=== PATIENT | male | born 1950 | race Caucasian/White ===

== ENCOUNTER 2023-01-25 11:45 | Outpatient (REF) | payer OTHER, SELFPAY ==
[2023-01-25 15:15] LABS: Appearance Urine Clear; Color Urine Yellow; Glucose Urine UA Negative (Negative); Leukocyte Esterase Urine Moderate (2+) (Negative); Nitrite Urine Negative (Negative); UMIC TRIGGER UA YES; Urine Blood Trace (Negative); Urine Ketones Trace mg/dL (Negative); Urine Protein 100 (2+) mg/dL (Neg-Trace)
[2023-01-25 15:40] LABS: Alanine Aminotransferase 21 U/L (0-40); Albumin Level 4.2 g/dL (3.5-5.0); Alkaline Phosphatase 67 U/L (39-117); Aspartate Amino Transferase 19 U/L (5-37); Bilirubin Direct 0.2 mg/dL (0.0-0.5); Bilirubin Total 0.5 mg/dL (0.0-1.0); Total Protein 7.1 g/dL (6.5-8.0)
[2023-01-25 16:33] LABS: Bacteria Urine None Seen (None Seen); Hyaline Casts Urine 0-2 /LPF (0-2); RBC Urine 0-2 /HPF (0-2); Squamous Epithelial Cell Urine 0-2 /HPF (0-2); WBC Urine 0-5 /HPF (0-5)
== END 2023-01-25 11:46 | disposition home or self-care (01) ==
LOC: HO.CHCLDS 11:45
PROVIDERS: Visit Provider Student in an Organized Health Care Education/Training Program
DX: E11.9 Type 2 diabetes mellitus without complications (principal)
CPT/HCPCS: 36415; 80076; 81001; 81003

== ENCOUNTER 2023-11-22 12:08 | Outpatient (REF) | payer OTHER, SELFPAY ==
[2023-11-22 14:38] LABS: MANUAL DIFF FLAG NO
[2023-11-22 14:40] LABS: Basophils Absolute Auto 0.1 X10*3/uL (0.0-0.2); Basophils Percent Auto 0.7 % (0-2); Eosinophils Absolute Auto 0.2 X10*3/uL (0.0-0.4); Eosinophils Percent Auto 2.6 % (0-4); Hematocrit 45.6 % (42.0-52.0); Imm Gran Abs Auto 0.04 X10*3/uL (0.00-0.03); Imm Gran Pct Auto 0.6 % (0.0-0.4); Lymphocytes Percent Auto 27.9 % (20-40); Mean Corpuscular HGB Conc 35.1 g/dl (31.0-36.0); Mean Corpuscular Hemoglobin 32.1 pg (27.0-33.0); Mean Corpuscular Volume 91.4 fL (80.0-98.0); Mean Platelet Volume 11.1 fL (9.4-12.4); Monocytes Absolute Auto 0.4 X10*3/uL (0.1-1.2); Monocytes Percent Auto 5.9 % (2-11); Neutrophils Absolute Auto 4.4 x10*3/uL (2.0-8.3); Neutrophils Percent Auto 62.3 % (45-73); Platelet Count 217 X10*3/uL (160-400); Red Blood Count 4.99 X10*6/uL (4.60-5.80); Red Cell Distribution Width 12.3 % (11.0-16.0)
[2023-11-22 15:12] LABS: Alanine Aminotransferase 27 U/L (0-40); Albumin Level 4.3 g/dL (3.5-5.0); Alkaline Phosphatase 77 U/L (39-117); Anion Gap 12 (12-20); Aspartate Amino Transferase 17 U/L (5-37); Bilirubin Total 0.3 mg/dL (0.0-1.0); Blood Urea Nitrogen 19 mg/dL (9-16); Calcium 9.7 mg/dL (8.4-10.2); Carbon Dioxide 26 mmol/L (22-29); Chloride 105 mmol/L (96-108); Estimated Glomerular Filt Rate 58; Glucose Random 168 mg/dL (60-115); Potassium 4.2 mmol/L (3.3-5.1); Sodium 139 mmol/L (135-145); Total Protein 7.4 g/dL (6.5-8.0)
[2023-11-22 15:31] LABS: Vitamin D 25-OH Total 42.3 ng/mL (>30)
[2023-11-22 15:34] LABS: Creatinine Urine 173.71 mg/dL; Microalbum/Creatinine Ratio Ur 150.8 ug/mg cr (<30)
[2023-11-22 15:42] LABS: Folate 8.9 ng/mL (> or = 4.0); Vitamin B12 529 pg/mL (200-900)
[2023-11-23 04:10] LABS: ~HepC Num1 0.11 S/CO (0.00-0.79); ~Hepatitis C Antibody Nonreactive (Nonreactive)
== END 2023-11-22 12:09 | disposition home or self-care (01) ==
LOC: HO.CHCLDS 12:08
PROVIDERS: Visit Provider Internal Medicine
DX: R26.9 Unspecified abnormalities of gait and mobility (principal); E11.9 Type 2 diabetes mellitus without complications; I10 Essential (primary) hypertension
CPT/HCPCS: 36415; 80053; 82043; 82306; 82570; 82607; 82746; 85025; 86803

== ENCOUNTER 2024-03-03 10:43 | Outpatient (REF) | payer OTHER, SELFPAY ==
[2024-03-03 14:44] LABS: Alanine Aminotransferase 27 U/L (0-40); Albumin Level 4.2 g/dL (3.5-5.0); Alkaline Phosphatase 68 U/L (39-117); Anion Gap 12 (12-20); Aspartate Amino Transferase 27 U/L (5-37); Bilirubin Direct 0.2 mg/dL (0.0-0.5); Bilirubin Total 0.7 mg/dL (0.0-1.0); Blood Urea Nitrogen 25 mg/dL (9-16); Calcium 9.2 mg/dL (8.4-10.2); Carbon Dioxide 27 mmol/L (22-29); Chloride 102 mmol/L (96-108); Cholesterol 248 mg/dL (<200); Estimated Glomerular Filt Rate 49; Glucose Random 186 mg/dL (60-115); HDL Cholesterol 52 mg/dL (>40); LDL Cholesterol Calculated 160 mg/dL (<100); Sodium 137 mmol/L (135-145); Total Protein 7.3 g/dL (6.5-8.0); Triglycerides 181 mg/dL (<150)
== END 2024-03-03 10:44 | disposition home or self-care (01) ==
LOC: HO.CHCLDS 10:43
PROVIDERS: Visit Provider Student in an Organized Health Care Education/Training Program
DX: I10 Essential (primary) hypertension (principal)
CPT/HCPCS: 36415; 80048; 80061; 80076

== ENCOUNTER 2024-08-25 11:44 | Outpatient (REF) | payer OTHER, SELFPAY ==
--- OUTSIDE RECORDS SUMMARY | 2024-08-25 13:17 | XMS_ITS | Encounter Summary ---
Author Organization [employer] Address [address] [facility] [address] [place] [address] Care Team Providers Care Um Rn Name Role Phone Desirae Pal MD Primary Care Provider [phone] Reason for Visit * Reason Onset Date Comments FYI 08/05/2023 Encounter Details Date Type Department Care Team ([facility] st Contact Info) Description 08/05/2023 Telephone [facility] [address] [place], [place] [id number] Desirae Pal MD 505 [place] [address] FYI Social History Tobacco Use Types Packs/Day Years Used Date Smoking Tobacco: Never Smokeless Tobacco: Never Alcohol Use Standard Drinks/Week Comments Never 0 (1 standard drink = 0.6 oz pur e alcohol) Alcohol Answer Date Recorded Frequency of Alcohol Consumption Not on file 01/17/2023 Average Number of Drinks Not on file 023 Frequency of Binge Drinking Not on file 12/24 Score 0 01/17/2023 Housing Stability Answer Date Recorded What is your housing situation today? I have pedro morrissey [address] you li ve. Do you have problems with any of the following? None of the above 2023 Food Insecurity Answer Date Recorded Within the past 12 months, y ou worried that your food would run out before you got money to buy more: Never True 2023 Within the past 12 months,th e food you bought just didn't last and you didn't have enough money to get more: Never True Transportation Answer Date Recorded In the past 12 months, has l ack of transportation kept you from medical appts, meetings, work or from getting things needed for daily living? No 2023 Utilities Answer Date Recorded In the past 12 months, has t he electric, gas, oil or water company threatened to shut off services in your home? No 2023 Sex and Gender Information Value Date Recorded Sex Assigned at Male 01/22/2022 10:27 AM EDT Legal Sex Male 10:27 AM EDT Gender Identity Male 01/22/2022 10:27 AM EDT Sexual Orientation Straight 01/22/2022 10 :27 AM EDT documented as of this encounter Miscellaneous Notes * Telephone Encounter - Geovanna Lay - 08/05/2023 2:57 PM EDT Tc from Jessenia with [facility] calling to advise provider Continuous Glucose Operations Inspector (FreeStyle Radames 2 [place]) device and Continuous Glucose Sensor (FreeStyle Radames 2 Sensor) misc was denied. Any questions, contact jessenia at [phone] ext [phone] documented in this encounter Plan of Treatment Upcoming Encounters Date Type Department Care Team (Late st Contact Info) Description 10/21/2024 11:30 AM EDT Office Visit [facility] MED & PEDS [address] [place] [address] Desirae Pal MD 505 [place] [address] documented as of this encounter Visit Diagnoses Not on filedocumented in this encounter Care Teams Um Rn Relationship Specialty Start Date End Date Desirae Pal MD [address] [place] [address] PCP - General Family Medicine 11/20/17 documented as of this encounter
[2024-08-25 15:53] LABS: Vitamin D 25-OH Total 41.2 ng/mL (>30)
[2024-08-25 16:11] LABS: Folate 9.9 ng/mL (> or = 4.0); Vitamin B12 598 pg/mL (200-900)
== END 2024-08-25 11:45 | disposition home or self-care (01) ==
LOC: HO.CHCLDS 11:44
PROVIDERS: Visit Provider Student in an Organized Health Care Education/Training Program
DX: R26.81 Unsteadiness on feet (principal)
CPT/HCPCS: 36415; 82306; 82607; 82746

== ENCOUNTER 2025-02-01 10:35 | Outpatient (REF) | payer OTHER, SELFPAY ==
--- OUTSIDE RECORDS SUMMARY | 2025-02-01 12:28 | XMS_ITS | Encounter Summary ---
Author Organization [employer] Address [address] [facility] 7t [place] [address] Care Team Providers Care Sieve Grader Tender Name Role Phone Desirae Pal MD Primary Care Provider [phone] Sveta Murry PharmD Unavailable [phone] Chacorta Cuellar CNP Primary Care Provider [phone] Encounter Details Date Type Department Care Team (Late st Contact Info) Description 08/06/2022 Orders Only [facility] MED & PEDS [address] [place] [address] Janna Peng LPN Social History Tobacco Use Types Packs/Day Years Used Date Smoking Tobacco: Never Smokeless Tobacco: Never Alcohol Use Standard Drinks/Week Comments Never 0 (1 standard drink = 0.6 oz pur e alcohol) Sex and Gender Information Value Date Recorded Sex Assigned at Male 01/22/2022 10:27 AM EDT Legal Sex Male 10:27 AM EDT Gender Identity Male 01/22/2022 10:27 AM EDT Sexual Orientation Straight 01/22/2022 10 :27 AM EDT documented as of this encounter Plan of Treatment Upcoming Encounters Date Type Department Care Team (Late st Contact Info) Description 02/22/2025 10:30 AM EST Medication Management [facility] MED & PEDS [address] [place] [address] Sveta Murry, PharmD [address] [place] [address] documented as of this encounter Visit Diagnoses Not on filedocumented in this encounter Care Teams Sieve Grader Tender Relationship Specialty Start Date End Date Desirae Pal MD [address] [place] [address] PCP - General Family Medicine 11/20/17 01/20/25 Chacorta Cuellar CNP [address] [place] [address] PCP - General Family Medicine 01/21/25 Sveta Murry PharmD [address] [place] [address] Pharmacist Pharmacy 12/31/24 documented as of this encounter
--- OUTSIDE RECORDS SUMMARY | 2025-02-01 12:28 | XMS_ITS | Encounter Summary ---
Author Organization [employer] Address [address] 7[address] [place] [address] Care Team Providers Care Automotive Service Porter Name Role Phone Desirae Pal MD Primary Care Provider [phone] Sveta Murry PharmD Unavailable [phone] Chacorta Cuellar CNP Primary Care Provider [phone] Reason for Visit * Reason Onset Date Comments triage 05/24/2022 Encounter Details Date Type Department Care Team (Late st Contact Info) Description 05/24/2022 Telephone [facility] MEDICINE [address] [place] [address] Desirae Pal MD [address] [place], [place] [phone] triage Social History Tobacco Use Types Packs/Day Years Used Date Smoking Tobacco: Never Assessed Sex and Gender Information Value Date Recorded Sex Assigned at Male 01/22/2022 10:27 AM EDT Legal Sex Male 10:27 AM EDT Gender Identity Male 01/22/2022 10:27 AM EDT Sexual Orientation Straight 01/22/2022 10 :27 AM EDT documented as of this encounter Miscellaneous Notes * Telephone Encounter - Dana Reyes RN - 05/24/2022 3:48 PM EST Triage call [place] [place] [id number] Pt is asking questions in regard to Pt leaving isolation. Pt was tested + with home Covid test05/12 and has been in isolation since that time. Pt is doing much better no further fever but, has residual cough but, not like before. Pt tested Pt again and Pt remains positive. is asking for advice as to whether Pt can come out of his room and be among family now. Home care information given regarding repeat testing and stopping isolation. Pt had no further questions and triage ended. Protocol Used: COVID-19 - Diagnosed or Suspected (Adult) Protocol-Based Disposition: Home Care Positive Triage Questions: * COVID-19 Home Isolation, questions about * COVID-19 Testing, questions about * All higher-acuity triage questions were negative Care Advice Discussed: * Clean Your Hands Often * FAQ - When Can I Stop Home Isolation If I Am Sick With COVID-19? * Repeating a COVID-19 Viral Test * Telephone Encounter - Zion Al - 05/24/2022 2:10 PM EST Symptoms: COVID-19 Suspected, Cough Outcome: Schedule a same-day appointment or talk to a nurse or provider today Reason: No high acuity concerns reported by caller The caller accepted this outcome speaks estonian documented in this encounter Plan of Treatment Upcoming Encounters Date Type Department Care Team (Late st Contact Info) Description 02/22/2025 10:30 AM EST Medication Management [facility] MED & PEDS [address] [place] [address] Sveta Murry PharmD [address] [place] [address] documented as of this encounter Visit Diagnoses Not on filedocumented in this encounter Care Teams Automotive Service Porter Relationship Specialty Start Date End Date Desirae Pal MD [address] [place] [address] PCP - General Family Medicine 11/20/17 01/20/25 Chacorta Cuellar CNP 505 [place] [address] PCP - General Family Medicine 01/21/25 Sveta Murry PharmD 230 [place] [address] Pharmacist Pharmacy 12/31/24 documented as of this encounter
--- OUTSIDE RECORDS SUMMARY | 2025-02-01 12:28 | XMS_ITS | Encounter Summary ---
Author Organization [employer] Address [address] [facility] 7t [place] [address] Care Team Providers Care Civil Drafter Name Role Phone Desirae Pal MD Primary Care Provider Sveta Murry PharmD Unavailable [phone] Chacorta Cuellar CNP Primary Care Provider [phone] Reason for Visit * Reason Onset Date Comments Hospital Follow-up 12/15/2024 Encounter Details Date Type Department Care Team ([facility] Contact Info) Description 12/15/2024 Telephone C [facility] MED [facility] PEDS 505 [place], [place] [phone] Desirae Pal MD 505 [place] [address] Hospital Follow-up Social History Tobacco Use Types Packs/Day Years [...] housing situation today? I have pedro morrissey 02/24/[address] you li ve. Do you have problems with any of the following? None of the above 02/24/2024 Food Insecurity Answer Date Recorded Within the past 12 months, y ou worried that your food would run out before you got money to buy more: Never True 02/24/2024 Within the past 12 months,th e food you bought just didn't last and you didn't have enough money to get more: Never True 04/2023 Transportation Answer Date Recorded In the past 12 months, has l ack of transportation kept you from medical appts, meetings, work or from getting things needed for daily living? No 02/24/2024 Utilities Answer Date Recorded In the past 12 months, has t he electric, gas, oil or water company threatened to shut off services in your home? No 02/24/2024 Internet Access Answer Date Recorded Internet Access Q1 No 02/24/2024 Internet Access Q2 I do not want or need it 04/2023 Sex and Gender Information Value Date Recorded Sex Assigned at Male 01/22/2022 10:27 AM EDT Legal Sex Male 10:27 AM EDT Gender Identity Male 01/22/2022 10:27 AM EDT Sexual Orientation Straight 01/22/2022 10 :27 AM EDT documented as of this encounter Miscellaneous Notes * Telephone Encounter - Spencer Klein - 12/15/2024 2:27 PM EDT Tc from pt requesting a HDF appt. Hospital: [facility] Date of admission: 12/04 Discharge date: 12/10 Diagnosed: abdominal pain and vomitting *Send message to [facility] Clinical Care Coordinators Contact pt at [phone] (croatian) documented in this encounter Plan of Treatment Upcoming Encounters Date Type Department Care Team (Late st Contact Info) Description 02/22/2025 10:30 AM EST Medication Management [facility] MED & PEDS [address] [place] [address] Sveta Murry, PharmD 230 [place] [address] documented as of this encounter Visit Diagnoses Not on filedocumented in this encounter Care Teams Civil Drafter Relationship Specialty Start Date End Date Desirae Pal MD [address] [place] [address] PCP - General Family Medicine 11/20/17 01/20/25 Chacorta Cuellar CNP [address] [place] [address] PCP - General Family Medicine 01/21/25 Sveta Murry PharmD 230 [place] [address] Pharmacist Pharmacy 12/31/24 documented as of this encounter
--- OUTSIDE RECORDS SUMMARY | 2025-02-01 12:28 | XMS_ITS | Encounter Summary ---
Author Organization [employer] Address [address] [facility] [address] 7[address] [place] [address] Care Team Providers Care Senior Software Development Manager Name Role Phone Desirae Pal MD Primary Care Provider [phone] Sveta Murry PharmD Unavailable [phone] Chacorta Cuellar CNP Primary Care Provider [phone] Reason for Visit * Reason Onset Date Comments re sent order 01/15/2025 Encounter Details Date Type Department Care Team ([facility] st Contact Info) Description 01/15/2025 Telephone [facility] [address] [place] [address] Desirae Pal MD [address] [place], [place] [phone] re sent order Social History Tobacco Use Types Packs/Day Years Used Date Smoking Tobacco: Never Smokeless Tobacco: Never Alcohol Use Standard Drinks/Week Comments Never 0 (1 standard drink = 0.6 oz pur e alcohol) Alcohol Answer Date Recorded Frequency of Alcohol Consumption Not on file 01/17/2023 Average Number of Drinks Not on file 023 Frequency of Binge Drinking Not on file 12/24 Score 0 01/17/2023 Depression Answer Date Recorded Patient Health Questionnaire-9 Score 6 12/25/2024 Patient Health Questionnaire-9 Score 6 12/25/2024 Last PHQ-9: Questionnaire Data Not on file 1 Housing Stability Answer Date Recorded What is [...] t he electric, gas, oil or water [employer] threatened to shut off services in your home? No 02/24/2024 Depression Answer Date Recorded Patient Health Questionnaire-2 Score 0 12/25/2024 Internet Access Answer Date Recorded Internet Access [...] encounter Miscellaneous Notes * Telephone Encounter - Desirae Pal MD - 01/18/2025 11:33 AM EDT New order placed * Telephone Encounter - Humaira Rivero - 01/15/2025 11:14 AM EDT TC from [facility] with [facility] requesting to see if PCP will re send order for Renal but has tosaid CT abdomen with and without contrast. PCP DR. Pal documented in this encounter Plan of Treatment Upcoming Encounters Date Type Department Care Team (Late st Contact Info) Description 02/22/2025 10:30 AM EST Medication Management [facility] MED & PEDS [address] [place] [address] Sveta Murry, PharmD [address] [place] [address] documented as of this encounter Visit Diagnoses Not on filedocumented in this encounter Additional Health Concerns Assessment Noted Time PHQ-9 Depression Total Score: 6 12/26/19 25 10:04 AM EDT documented as of this encounter Care Teams Senior Software Development Manager Relationship Specialty Start Date End Date Desirae Pal MD [address] [place] [address] PCP - General Family Medicine 11/20/17 01/20/25 Chacorta Cuellar CNP [address] [place] [address] PCP - General Family Medicine 01/21/25 Sveta Murry PharmD [address] [place] [address] Pharmacist Pharmacy 12/31/24 documented as of this encounter
--- OUTSIDE RECORDS SUMMARY | 2025-02-01 12:28 | XMS_ITS | Clinical Summary ---
Author Organization [employer] [facility] Address [address] [place] [address] Care Team Providers Care Orthopaedic Technologist Name Role Phone Reymundo Osei MD Primary Care Provider [phone] Social History Tobacco Use Types Packs/Day Years Used Date Smoking Tobacco: Never Assessed Sex and Gender Information Value Date Recorded Sex Assigned at Not on file Legal Sex Male 9:01 PM EST Gender Identity Not on file Sexual Orientation Not on file Last Filed Vital Signs Vital Sign Reading Time Taken Comments Blood Pressure - - Pulse - - Temperature - - Respiratory Rate - - Oxygen Saturation - - Inhaled Oxygen Concentration - - Weight 56.2 kg (124 lb) 04/30/2023 10:05 AM EST Height 158.8 cm (5' 2.5 ) 04/30/2023 10:05 AM ES T Body Mass Index 22.32 04/30/2023 10:05 AM EST Plan of Treatment Health Maintenance Due Date Last Done Comments DTaP,Tdap,and Td Vaccines (1 - Tdap) 01/15/1967 Pneumococcal Vaccine: 50+ Ye ars (1 of 1 - PCV) 01/15/1998 Zoster Vaccines (1 of 2) 01/15/1998 RSV Immunization Adult Patie nts (1 - 1-dose 75+ series) 01/15/2023 Cholesterol Screening (Lipid Panel) 04/19/2023 Falls Risk Assessment 04/19/2023 Hepatitis C Screening 04/19/2023 Social Influencers of Health Screening 04/19/2023 Depression Screening 03/25/2024 COVID-19 Vaccine (1 - 2024-2 6 season) 2024 Influenza Vaccine (#1) 2024 HIB Vaccines Aged Out No longer eligi ble based on patient's age to complete this topic HPV Vaccines Aged Out No longer eligi ble based on patient's age to complete this topic Hepatitis A Vaccines Aged Out No long er eligible based on patient's age to complete this topic Hepatitis B Vaccines Aged Out No long er eligible based on patient's age to complete this topic IPV Vaccines Aged Out No longer eligi ble based on patient's age to complete this topic MMR Vaccines Aged Out No longer eligi ble based on patient's age to complete this topic Meningococcal ACWY Vaccine Aged Out N o longer eligible based on patient's age to complete this topic Meningococcal B Vaccine Aged Out No l onger eligible based on patient's age to complete this topic RSV Immunization Patients Un philip 20 months Aged Out No longer eligible b ased on patient's age to complete this topic Varicella Vaccines Aged Out No longer eligible based on patient's age to complete this topic Care Teams Orthopaedic Technologist Relationship Specialty Start Date End Date Reymundo Osei MD [address] [place] [address] PCP - General 07/28/13
--- OUTSIDE RECORDS SUMMARY | 2025-02-01 12:28 | XMS_ITS | Encounter Summary ---
Author Organization [employer] Address [address] [facility] [address] 7[address] [place] [address] Care Team Providers Care Plastering Contractor Name Role Phone Desirae Pal MD Primary Care Provider [phone] Sveta Murry PharmD Unavailable [phone] Chacorta Cuellar CNP Primary Care Provider [phone] Reason for Visit * Reason Onset Date Comments new CT order 12/31/2024 Encounter Details Date Type Department Care Team ([facility] st Contact Info) Description 12/31/[address] [facility] MEDICINE [address] [place] [address] Desirae Pal MD [address] [place], [place] [phone] new CT order Social History Tobacco Use Types Packs/Day [...] the past 12 months, has t he [employer], gas, oil or water [employer] threatened to shut off services in your [...] Telephone Encounter - Desirae Pal MD - 01/07/2025 11:24 AM EDT ordered * Telephone Encounter - Minda Regalado - 01/01/2025 10:20 AM EDT Tc from [facility] stating that order was fax over wrong again Please fax over a new order, need to say with and without contrast. Contact [facility] at [phone] * Telephone Encounter - Minda Regalado - 12/31/2024 2:58 PM EDT Tc from Jennifer requesting a new order. The original order was faxed incorrectly. It should state: CT scan with and without contrast. Contact Jennifer at [phone] documented in this encounter Plan of Treatment Upcoming Encounters Date Type Department Care Team (Late st Contact Info) Description 02/22/2025 10:30 AM EST Medication Management [facility] MED & PEDS [address] [place] [address] Sveta Murry PharmD [address] [place] [address] documented as of this encounter Visit Diagnoses Not on filedocumented in this encounter Additional Health Concerns Assessment Noted Time PHQ-9 Depression Total Score: 6 12/26/19 10:04 AM EDT documented as of this encounter Care Teams Plastering Contractor Relationship Specialty Start Date End Date Desirae Pal MD [address] [place] [address] PCP - General Family Medicine 11/20/17 01/20/25 Chacorta Cuellar CNP [address] [place] [address] PCP - General Family Medicine 01/21/25 Sveta Murry PharmD [address] [place] [address] Pharmacist Pharmacy 12/31/24 documented as of this encounter
--- OUTSIDE RECORDS SUMMARY | 2025-02-01 12:28 | XMS_ITS | Encounter Summary ---
Author Organization [employer] Address [address] [facility] 7t [place] [address] Care Team Providers Care Public Health Doctor Name Role Phone Desirae Pal MD Primary Care Provider [phone] Sveta Murry PharmD Unavailable [phone] Chacorta Cuellar CNP Primary Care Provider [phone] Reason for Visit * Reason Onset Date Comments FYI 08/05/2023 Encounter Details Date Type Department Care Team ([facility] Contact Info) Description 08/05/2023 Telephone [facility] MED & PEDS [address] [place], [place] [phone] Desirae Pal MD [address] [place] [address] Social History Tobacco Use Types Packs/Day Years [...] 2:57 PM EDT Tc from Jessenia with [facility] calling to advise provider Continuous Glucose Hospice Superintendent (FreeStyle Radames 2 [place]) device and Continuous Glucose Sensor (FreeStyle Radames 2 Sensor) misc was denied. Any questions, contact jessenia at [phone] ext [phone] documented in this encounter Plan of Treatment Upcoming Encounters Date Type Department Care Team (Late st Contact Info) Description 02/22/2025 10:30 AM EST Medication Management [facility] MED & PEDS [address] [place] [address] Sveta Murry, PharmD [address] [place] [address] documented as of this encounter Visit Diagnoses Not on filedocumented in this encounter Care Teams Public Health Doctor Relationship Specialty Start Date End Date Desirae Pal MD [address] [place] [address] PCP - General Family Medicine 11/20/17 01/20/25 Chacorta Cuellar CNP [address] [place] [address] PCP - General Family Medicine 01/21/25 Sveta Murry, Yakov [address] [place] [address] Pharmacist Pharmacy 12/31/24 documented as of this encounter
--- OUTSIDE RECORDS SUMMARY | 2025-02-01 12:28 | XMS_ITS | Clinical Summary ---
Author Organization [employer] Address [address] [facility] 7t [place] [address] Care Team Providers Care Battery Test Engineer Name Role Phone MurryKallie reesecia PharmD Unavailable [phone] Chacorta Cuellar CNP Primary Care Provider [phone] Allergies No known active allergies Medications lisinopril-hydroC HLOROthiazide 20-12.5 MG tabletIndications :Primary hypertension Take 1 tablet by mouth once daily 90 tablet 5 Active rosuvastatin (Crestor) 20 MG tablet Take 1 tablet (20 mg) by mouth Once per day. 30 tablet 11 5 12/26/19 26 Active glucose blood (FREESTYLE LITE) test stripIndications: Type 2 diabetes mellitus without complication, without long-term current use of insulin ([facility]) Use to test blood sugar 2 times daily 100 each 11 5 01/01/20 26 Active Lancets miscIndications:T ype 2 diabetes mellitus without complication, without long-term current use of insulin ([facility]) Use to test blood sugar 2 times daily 100 each 11 5 Active Alcohol Swabs 70 % padsIndications:T ype 2 diabetes mellitus without complication, without long-term current use of insulin ([facility]) Use to test blood sugar 2 times daily 100 each 11 5 Active Blood Glucose Monitoring Suppl (FreeStyle [place] Lite) w/Device kitIndications:Ty pe 2 diabetes mellitus without complication, without long-term current use of insulin ([facility]) Use to test blood sugar 2 times daily 1 kit 5 Active metFORMIN (Glucophage) 1000 MG tabletIndications :Type 2 diabetes mellitus without complication, without long-term current use of insulin ([facility]) Take 1 tablet (1,000 mg) by mouth with breakfast and with evening meal. 180 tablet 1 5 Active glipiZIDE (Glucotrol) 5 MG tabletIndications :Type 2 diabetes mellitus without complication, without long-term current use of insulin (HCC) Take 1 tablet (5 mg) by mouth before breakfast and before evening meal. 180 tablet 1 5 Active Active Problems Problem Noted Date Diagnosed Date Encounter for screening colonoscopy 04/26/2023 04/26/2023 Type 2 diabetes mellitus 05/12/2014 Hypertensive disorder 05/12/2014 Resolved Problems Problem Noted Date Diagnosed Date Resolved Date Hemiparesis of right dominant side (CMS/HCC) 4 08/26/2024 Assessment & Plan (04/26/2023 11:28 AM EST): Recommended to visit specialist since it will benefit patient for better improvement of mobility/stability: patient accepted. Therefore, patient that presented visit with complaints of Hemiparesis of R dominant side will be referred to Physiatry and Neurology. Encounters Date Type Department Care Team Description 01/28/2025 Orders Only [facility] [address] [place] [address] Chacorta Cuellar CNP Left kidney mass (Primary Dx) 01/28/[address] [address] Chacorta Cuellar CNP Lab Orders 01/18/2025 Orders Only [facility] [address] [place] [address] Desirae Pal MD Left kidney mass (Primary Dx) 01/15/[address] [address] Desirae Pal MD re sent order 01/07/2025 Orders Only [facility] [address] [place] [address] Desirae Pal MD Left kidney mass (Primary Dx) 12/31/[address] [address] Desirae Pal MD new CT order 12/31/2024 Travel 12/31/2024 Orders Only [facility] [address] [place] [address] Desirae Pal MD Left kidney mass (Primary Dx) 12/30/2024 Telephone [facility] [address] [place] [address] [address] order refax 12/25/2024 9:30 AM EDT Office Visit [facility] [address] [place] [address] Desirae Pal MD Acute abdominal pain (Primary Dx); Left kidney mass; Type 2 diabetes mellitus with other circulatory complication, without long-term current use of insulin (HCC); Encounter for immunization 12/25/2024 Travel 12/24/2024 Telephone [facility] [address] [place] [address] Desirae Pal MD Chart Prep 12/21/2024 Patient Outreach [facility] [address] [place] [address] Desirae Pal MD Transition Of Care (Tcm) (HDF- Scheduled) 12/15/2024 Telephone [facility] [address] [place] [address] Desirae Pal MD Hospital Follow-up 11/24/2024 Refill [facility] [address] [place] [address] Cash Thompson MD Primary hypertension 11/04/2024 Telephone [facility] [address] [place] [address] Desirae Pal MD Durable Medical Equipment from Last 3 Months Immunizations Immunization Administration Dates Next Due Influenza High-dose Quadriva lent Preservative Free 12/11/2022,02/17/2020 Influenza Quadrivalent Adjuvanted 02/21/2022 Influenza injectable quadriv alent IIV4 with preservative 02/11/2019,02/20/2017,12/20/2015 Influenza injectable quadriv alent preservative free 03/31/2018,04/12/2015 Influenza, High Dose Seasona l, Preservative Free 12/25/2024,02/24/2024 Jeramy SARS-CoV-2 Vaccination 06/20/2020 Pfizer Covid-19 Vaccine 12+ 02/24/2024, Pneumococcal Conjugate PCV 13 04/12/2015 Pneumococcal Polysaccharide PPSV23 09/04/2016 TD (adult), 2 Lf tetanus tox oid, preservative free, adsorbed 04/24/2016 Tdap 07/24/2023 Zoster, live 06/02/2014 Social History Tobacco Use Types Packs/Day Years Used Date Smoking Tobacco: Never Smokeless Tobacco: Never Tobacco Cessation:Counseling Given: Not Answered Alcohol Use Standard Drinks/Week Comments Never 0 [...] Orientation Straight 01/22/2022 10 :27 AM EDT Last Filed Vital Signs Vital Sign Reading Time Taken Comments Blood Pressure 155/79 12/25/2024 10:02 AM EDT Pulse 84 12/25/2024 10:02 AM EDT Temperature 36.4 C (97.5 F) 12/25/2024 10:02 AM EDT Respiratory Rate 20 12/25/2024 10:02 AM EDT Oxygen Saturation 98% 08/25/2024 11:13 AM EDT Inhaled Oxygen Concentration - - Weight 53.1 kg (117 lb) 12/25/2024 10:02 AM EDT Height 157.5 cm (5' 2 ) 12/25/2024 10:02 AM EDT Body Mass Index 21.4 12/25/2024 10:02 AM EDT Plan of Treatment Upcoming Encounters Date Type Department Care Team (Late st Contact Info) Description 02/22/2025 10:30 AM EST Medication Management [facility] [address] [place] [address] Sveta Murry, PharmD [address] [place] [address] Health Maintenance Due Date Last Done Comments Eye Exam 01/15/1960 Zoster Vaccines (2 of 3) 07/28/2014 06/02/2014 RSV Patients and Patients Aged 60 years or older (1 - 1-dose 75+ series) 01/15/2023 Diabetes: Urine Protein Screening 11/21/2024 11/22/2023 COVID-19 Vaccine ( season) 2024 02/24/2024, 01/23/2021, 06/20/2020 Diabetes: Foot Exam 02/23/2025 02/24/2024, 02/24/2024, 02/24/2024, Additional history exists SDOH Screening 02/23/2025 02/24/2024 Lipid Panel 03/03/2025 03/03/2024, 06/23, 02/01/2021 Diabetes: Hemoglobin A1C 03/27/2025 025, 08/25/2024, 02/24/2024, Additional history exists Alcohol/Substance Use Screening 12/25/2025 12/25/2024 Depression Screening 12/25/2025 12/25/2024, 12/26/19 25 Tobacco Screening 12/25/2025 12/25/2024 DTaP/Tdap/Td Vaccines (2 - Td or Tdap) 07/23/2033 07/24/2023, 04/24/2016 Colonoscopy Discontinued 06/27/2015 Colorectal Cancer Screening Discontinued Pneumococcal Vaccine: 50+ Years Completed 09/04/2016, 04/12/2015 Hepatitis C Screening Completed 11/22/2023 Influenza Vaccine Completed 12/25/2024, , 12/11/2022, Additional history exists CT Colonography Discontinued FIT DNA/Cologuard Discontinued FIT Discontinued FOBT Discontinued HIB Vaccines Aged Out No longer eligi [...] patient's age to complete this topic Meningococcal Vaccine Aged Out No jamee charles eligible based on patient's age to complete this topic RSV under 20 months Aged Out No longe r eligible based on patient's age to complete this topic Rotavirus Vaccines Aged Out No longer eligible based on patient's age to complete this topic Sigmoidoscopy Discontinued Procedures Procedure Name Priority Date/Time Associated Diagnosis Comments POCT GLUCOSE Routine 12/31/2024 11:15 AM EDT Type 2 diabetes mellitus without complication, without long-term current use of insulin (HCC) POCT GLYCATED HEMOGLOBIN, TOTAL Routine 12/25/2024 10:24 AM EDT Type 2 diabetes mellitus with other circulatory complication, without long-term current use of insulin (HCC) POCT GLUCOSE Routine 12/25/2024 10:23 AM EDT Type 2 diabetes mellitus with other circulatory complication, without long-term current use of insulin (HCC) LIPID PANEL, STANDARD Routine 03/03/2024 10:44 AM EST Primary hypertension ALBUMIN, RANDOM URINE W/CREATININE Routine 11/22/2023 12:10 PM EDT Type 2 diabetes mellitus without complication, without long-term current use of insulin (CMS/HCC) HEPATITIS C AB W/REFL TO HCV RNA, QN, PCR Routine 11/22/2023 12:09 PM EDT Type 2 diabetes mellitus without complication, without long-term current use of insulin (CMS/HCC) Primary hypertension Gait disturbance HM COLONOSCOPY Routine 06/27/2015 from Last 3 Months or Most Recently Relevant to Health Maintenance Results * POCT glucose manually resulted (12/31/2024 11:15 AM EDT) Only the most recent of2 resultswithin the time period is included. Glucose Blood, POC 188 60 - 200 mg/dL QC Media Lot # [id number] Lot# Expiration Date , Blood Capillary blood specimen / Unknown 12/31/2024 11:15 AM EDT us Desirae Pal MD POINT OF CARE TEST ENTER/EDIT OR DERABLES Final Result * (ABNORMAL) POCT Hgb A1c (12/25/2024 10:24 AM EDT) Hemoglobin A1C 8.4(A) 4.0 - 5.7 % QC Media Lot # [id number] Lot# Expiration Date ,062,[id number] Blood 12/25/2024 10:2 4 AM EDT us Desirae Pal MD POINT OF CARE TEST ENTER/EDIT OR DERABLES Final Result * (ABNORMAL) Lipid Panel, Standard (03/03/2024 10:44 AM EST) Triglycerides 181(H) <150 mg/dL [facility] Comment:Desirable Triglyceri de: less than 150 mg/dLBorderline High Triglyceride 150-199 mg/dLHigh Triglyceride: 200-499 mg/dLVery High Triglyceride: greater than or equal to 5OO mg/dL Cholesterol 248(H) <200 mg/dL [facility] Comment:Desirable Cholestero l: less than 200 mg/dLBorderline High Cholesterol: 200-239 mg/dLHigh Cholesterol: greater than 239 mg/dL LDL Cholesterol Calculated 160(H) <100 mg/dL [facility] Comment:Desirable LDL: less than 100 mg/dLNear Optimal/Above Optimal LDL: 110- 129 mg/dLBorderline High LDL: 130-159 mg/dLHigh LDL: 160-189 mg/dLVery High LDL: greater than or equal to 190 mg/dL HDL Cholesterol 52 >40 mg/dL [facility] Comment:Desirable HDL: great er than 40 mg/dL Note: This HDL assay may give artificially low results in patients with liver disease. Blood Venous blood specimen / Unknown 03/03/2024 10:44 AM EST 03/03/2024 2:12 PM EST us Desirae Pal MD LAB BLOOD ORDERABLES Final Resul t [facility] [address] [place] [phone] * (ABNORMAL) Albumin, Random Urine W/Creatinine (11/22/2023 12:10 PM EDT) Creatinine, Urine 173.71 mg/dL [facility] Microalbumin Urine 262.0 mg/L [facility] Microalbum Creatinine Ratio Ur 150.8(H) <30 ug/mg cr [facility] Comment:Albumin/Creatinine R atio Reference Ranges: Normal: < 30 ug/mg creatinine Microalbuminuria: 30 - 300 ug/mg creatinineClinical Albuminuria: > 300 ug/mg creatinine Urine (Urine, Random) 11/22/2023 12:10 PM EDT 11/22/2023 2:37 PM EDT us Cash Thompson MD LAB URINE ORDERABLES Final Result Performing Organization Address [facility]/ZIP Co de Phone Number [facility] [address] [place] [address] [phone] * Hepatitis C Antibody with Reflex to HCV, RNA, Quantitative, Real-Time PCR (11/22/2023 12:09 PM EDT) Hepatitis C Antibody Nonreactive Nonreactive [facility] Comment:Antibodies to HCV no t detected; does not exclude early acuteHCV infection. Blood Venous blood specimen / Unknown 11/22/2023 12:09 PM EDT 11/22/2023 2:36 PM EDT us Cash Thompson MD LAB BLOOD ORDERABLES Final Result Performing Organization Address City/[facility] Co de Phone Number [facility] [address] [place] [address] [phone] * Colonoscopy (06/27/2015) Colonoscopy Normal Normal us Historical Provider HEALTH MAINTENANCE Final Result from Last 3 Months or Most Recently Relevant to Health Maintenance Insurance [facility] [employer] OPT[employer] (HMO D-SNP) [employer] [id number] Care Teams Battery Test Engineer Relationship Specialty Start Date End Date Chacorta Cuellar CNP [address] [place] [address] PCP - General Family Medicine 01/21/25 Sveta Murry PharmD [address] [place] [phone] Pharmacist Pharmacy 12/31/24
--- OUTSIDE RECORDS SUMMARY | 2025-02-01 12:29 | XMS_ITS | Encounter Summary ---
Author Organization [employer] Address [address] [facility] [place] [address] Care Team Providers Care Branch Library Clerk Name Role Phone Desirae Pal MD Primary Care Provider [phone] Sveta Murry PharmD Unavailable [phone] Chacorta Cuellar CNP Primary Care Provider [phone] Reason for Visit * Reason Onset Date Comments CT order refax 12/30/2024 Encounter Details Date Type Department Care Team ([facility] st Contact Info) Description 12/30/2024 Telephone [facility] [address] [place] [address] Desirae Pal MD [address] [place] [address] CT order refax Social History Tobacco Use Types Packs/Day Years [...] the past 12 months, has t he [employer], gas, oil or water company threatened to [...] Telephone Encounter - Desirae Pal MD - 12/31/2024 8:36 AM EDT sent * Telephone Encounter - Minda Regalado - 12/30/2024 11:23 AM EDT Tc from Barbara stating that the order for the Ct scan was send wrong. The order should say with and without Contact Barbara at [phone] documented in this encounter Plan of Treatment Upcoming Encounters Date Type Department Care Team (Late st Contact Info) Description 02/22/2025 10:30 AM EST Medication Management [facility] [address] [place], [place] [phone] Sveta Murry, PharmD [address] [place], [place] [phone] documented as of this encounter Visit Diagnoses Not on filedocumented in this encounter Additional Health Concerns Assessment Noted Time PHQ-9 Depression Total Score: 6 12/26/19 25 10:04 AM EDT documented as of this encounter Care Teams Branch Library Clerk Relationship Specialty Start Date End Date Desirae Pal MD [address] [place] [address] PCP - General Family Medicine 11/20/17 01/20/25 Chacorta Cuellar CNP [address] [place] [address] PCP - General Family Medicine 01/21/25 Sveta Murry PharmD [address] [place] [address] Pharmacist Pharmacy 12/31/24 documented as of this encounter
--- OUTSIDE RECORDS SUMMARY | 2025-02-01 12:29 | XMS_ITS | Encounter Summary ---
Author Organization [employer] Address [address] [facility] [address] [place] [address] Care Team Providers Care Dietetic Assistant Name Role Phone MurryKallie reesecia PharmD Unavailable [phone] Chacorta Cuellar CNP Primary Care Provider [phone] Reason for Visit * Reason Onset Date Comments Lab Orders 01/28/2025 Encounter Details Date Type Department Care Team (Late st Contact Info) Description 01/28/2025 Telephone [facility] [address] [place], [place] [phone] Chacorta Cuellar CNP [address] [place] [address] Lab Orders Social History Tobacco Use Types Packs/Day Years [...] encounter Miscellaneous Notes * Telephone Encounter - Griselda Jacobson RN - 01/28/2025 1:52 PM EST TC to pt spouse and advised of additional blood work to complete. Pt spouse stated cannot have pt complete blood work until 02/01/25. Author stated once results obtained will send to [facility]. * Telephone Encounter - Chacorta Cuellar CNP - 01/28/2025 1:11 PM EST I will [address] CMP order now, thank you! * Telephone Encounter - Humaira Rivero - 01/28/2025 11:47 AM EST TC from Darleen requesting pt to get lab FUNDING COORDINATOR. Pt has appointment on 02/03 at 10am. PCP RADU Cuellar To contact Darleen at [phone] documented in this encounter Plan of Treatment Upcoming Encounters Date Type Department Care Team (Late st Contact Info) Description 02/22/2025 10:30 AM EST Medication Management [facility] [address] [place] [address] Sveta Murry, Yakov [address] [place] [address] documented as of this encounter Visit Diagnoses Not on filedocumented in this encounter Additional Health Concerns Assessment Noted Time PHQ-9 Depression Total Score: 6 12/26/19 25 10:04 AM EDT documented as of this encounter Care Teams Dietetic Assistant Relationship Specialty Start Date End Date Chacorta Cuellar CNP [address] [place] [address] PCP - General Family Medicine 01/21/25 Sveta Murry, Yakov [address] [place] [address] Pharmacist Pharmacy 12/31/24 documented as of this encounter
--- OUTSIDE RECORDS SUMMARY | 2025-02-01 12:29 | XMS_ITS | Encounter Summary ---
Author Organization [employer] Address 75 [facility] 7t [place] [address] Care Team Providers Care Entertainment Lawyer Name Role Phone MurryKallie reesecia PharmD Unavailable [phone] Chacorta Cuellar CNP Primary Care Provider [phone] Encounter Details Date Type Department Care Team (Late st Contact Info) Description 01/28/2025 Orders Only [facility] [address] [place], [place] [phone] Chacorta Cuellar CNP [address] [place], [place] [phone] Left kidney mass (Primary Dx) Social History Tobacco Use Types Packs/Day Years [...] Description 02/22/2025 10:30 AM EST Medication Management [facility] [address] [place] [address] Sveta Murry PharmD [address] [place] [address] Scheduled Orders Name Type Priority Associated Diagnoses Orde r Schedule Comprehensive Metabolic Panel Lab Routine Left kidney mass Expected: 01/28/2025 (Approximate), Expires: 01/28/2026 documented as of this encounter Visit Diagnoses Diagnosis Left kidney mass- Primary Unspecified disorder of kidney and ureter documented in this encounter Additional Health Concerns Assessment Noted Time PHQ-9 Depression Total Score: 6 12/26/19 10:04 AM EDT documented as of this encounter Care Teams Entertainment Lawyer Relationship Specialty Start Date End Date Chacorta Cuellar CNP [address] [place] [address] PCP - General Family Medicine 01/21/25 Sveta Murry PharmD [address] [place] [address] Pharmacist Pharmacy 12/31/24 documented as of this encounter
--- OUTSIDE RECORDS SUMMARY | 2025-02-01 12:29 | XMS_ITS | Encounter Summary ---
Author Organization [email or web address] Address [address] [facility] 7t [place] [address] Care Team Providers Care Cake Washer Name Role Phone Desirae Pal MD Primary Care Provider [phone] Sveta Murry PharmD Unavailable [phone] Chacorta Cuellar CNP Primary Care Provider [phone] Reason for Visit * Reason Onset Date Comments Medication Question 12/13/2022 Call Back Request 12/13/2022 Encounter Details Date Type Department Care Team ([facility] st Contact Info) Description 12/13/2022 Telephone [facility] [address] [place], [place] [phone] Desirae Pal MD [address] [place], [place] [phone] Medication Question; Call Back Request Social History Tobacco Use Types Packs/Day Years [...] encounter Miscellaneous Notes * Telephone Encounter - Carlo Lay RN - 12/25/2022 11:06 AM EDT Please review request for Rx glucometer and advise. Thank you. * Telephone Encounter - Camilla Brito - 12/25/2022 10:27 AM EDT Tc from pt requesting status on glucometer. Any question contact pt [phone] Kyrgyz * Telephone Encounter - Carlo Lay RN - 12/14/2022 9:50 AM EDT Reviewed chart. Rx glucometer not sent to pharmacy. Please advise. Thank you. * Telephone Encounter - Desirae Pal MD - 12/14/2022 9:17 AM EDT Sent .PLease make sure Pharmacy fills onetouch * Telephone Encounter - Carlo Lay RN - 12/13/2022 1:28 PM EDT Will forward to PCP to review request for glucometer.. Pt last seen 11/22/[address] Thompson and 10/16/[address] Morales. Has DM f/u with PCP on 01/17/23. * Telephone Encounter - Geetha David - 12/13/2022 1:16 PM EDT Tc from pt checking status on a glucose meter kit that was going to be sent on last visit . documented in this encounter Plan of Treatment Upcoming Encounters Date Type Department Care Team (Late st Contact Info) Description 02/22/2025 10:30 AM EST Medication Management [facility] [address] [place] [address] Sveta Murry, PharmD [address] [place], [place] [phone] documented as of this encounter Visit Diagnoses Not on filedocumented in this encounter Care Teams Cake Washer Relationship Specialty Start Date End Date Desirae Pal MD [address] [place] [address] PCP - General Family Medicine 11/20/17 01/20/25 Chacorta Cuellar CNP [address] [place] [phone] PCP - General Family Medicine 01/21/25 Sveta Murry PharmD [address] [place] [address] Pharmacist Pharmacy 12/31/24 documented as of this encounter
[2025-02-01 15:10] LABS: Alanine Aminotransferase 40 U/L (0-40); Albumin Level 4.6 g/dL (3.5-5.0); Alkaline Phosphatase 80 U/L (39-117); Anion Gap 11 (12-20); Aspartate Amino Transferase 35 U/L (5-37); Blood Urea Nitrogen 32 mg/dL (9-16); Calcium 9.3 mg/dL (8.4-10.2); Carbon Dioxide 26 mmol/L (22-29); Chloride 106 mmol/L (96-108); Estimated Glomerular Filt Rate 50; Potassium 4.5 mmol/L (3.3-5.1); Sodium 138 mmol/L (135-145); Total Protein 7.4 g/dL (6.5-8.0)
== END 2025-02-01 10:36 | disposition home or self-care (01) ==
LOC: HO.CHCLDS 10:35
DX: N28.89 Other specified disorders of kidney and ureter (principal)
CPT/HCPCS: 36415; 80053